=== PATIENT | male | born 1950 | race Caucasian/White ===

== ENCOUNTER 2017-06-05 08:08 | Day surgery (SDC) | payer OTHER, BC ==
[2017-05-31 16:01] VITALS: BMI 28.8
[2017-06-05] MEDS: CYCLOPENTOLATE 2% OPHTH SOLN 2 ML BOTTLE ONE ×3 (09:05→09:15)
[2017-06-05] MEDS: TROPICAMIDE 1% OPHTH SOLN 15 ML BOTTLE ONE ×3 (09:05→09:15)
[2017-06-05] MEDS: CIPROFLOXACIN 0.3% EYE DROPS 5 ML BOTTLE ONE ×3 (09:05→09:15)
[2017-06-05] MEDS: PHENYLEPHRINE 2.5% OPHTH SOLN 15 ML BOTTLE ONE ×3 (09:05→09:15)
[2017-06-05] MEDS ORDERED: BSS (NA/CA/MG/K) BALANCED SALT SOLUTION OPHTH SOLN 15 ML BOTTLE ONE (10:42)
[2017-06-05] MEDS ORDERED: TETRACAINE 0.5% OPHTH SOLN 2 ML BOTTLE ONE (10:42)
[2017-06-05] MEDS ORDERED: CARBACHOL 0.01% INTRA-OCULAR 1.5 ML VIAL ONE (10:43)
[2017-06-05] MEDS ORDERED: MIDAZOLAM HCL 2 MG/2 ML SINGLE DOSE VIAL ONE ×2 (10:53→10:55)
--- NOTE | 2017-06-05 12:44 | OP ---
DATE OF OPERATION: 06/05/2017 OPERATIVE PROCEDURE: Lens Phacoemulsification with Posterior Chamber Intraocular Lens Placement Left Eye PREOPERATIVE DIAGNOSIS: Visually Significant Cataract of Left Eye POSTOPERATIVE DIAGNOSIS: Visually Significant Cataract of Left Eye SURGEON: Jaiden Adorno M.D. ANESTHESIA: MAC PROCEDURE: The patient was brought to the operating room and placed under monitored anesthesia care by Anesthesia. A drop of Tetracaine was then placed over the left eye. The patient was then prepped and draped in the usual sterile manner. A speculum was then placed over the left eye. The eye was then well irrigated with copious amounts of BSS (balanced salt solution). The operating microscope was then moved into position. A paracentesis was performed using a 15 degree blade. At this point 0.5 mL of 1% preservative-free lidocaine was injected into the anterior chamber. Amvisc plus was then injected into the anterior chamber. A clear corneal incision was then formed using a 2.2 mm keratome. A capsulorrhexis was then performed in a continuous circular fashion beginning with a cystotome, completed with an Utratas forceps. Hydrodissection was then performed using BSS on a cannula. The phaco probe was then introduced through the corneal wound and the cataract was removed using the phaco chop technique. Approximately 3 seconds of absolute phaco time was used. The remaining cortex was then removed using irrigation and aspiration with an I/A probe. The capsule was then filled with regular Amvisc and the capsule was noted to be intact. A previously selected foldable posterior chamber intraocular lens was then injected into the capsule through the corneal wound using a lens injector. It was then dialed into position using a Sinskey hook. The Amvisc was then removed using irrigation and aspiration. Miostat was then injected through the paracentesis to constrict the pupil. The paracentesis and corneal wound were then hydrated and noted to be water tight. A drop of Maxitrol was then placed over the eye. The speculum was removed and clear shield was taped over the eye. The patient tolerated the procedure well and there were no surgical complications. The patient was asked to follow up in my office the next day. JAIDEN ADORNO M.D. ANI/[id number]
[2017-06-05 13:58] VITALS: TEMP 97.9
[2017-06-05 14:01] VITALS: BP 141/86; PULSE 46
== END 2017-06-05 12:00 | disposition home or self-care (01) ==
LOC: FASU 08:08
PROVIDERS: ATTEND Ophthalmology
PROC: 08RK3JZ Replacement of Left Lens with Synthetic Substitute, Percutaneous Approach (ICD-10-PCS; principal; 2017-06-05 10:59)
DX: H26.8 Other specified cataract (principal)

== ENCOUNTER 2019-04-06 11:01 | Emergency (ER) | payer OTHER, BC ==
[2019-04-06 11:15] VITALS: BMI 28.3
--- NOTE | 2019-04-06 11:22 | PDOC ---
History of Present Illness - General Chief Complaint: Chest Pain Stated Complaint: CHEST PAIN Time Seen by Provider: 04/06/19 11:22 History Source: Patient Exam Limitations: No Limitations - History of Present Illness Initial Comments: 68 year old male with PMH HTN, HLD, CAD (stent X4) BIBA to ED for chest pain since 944 today. Pt reported pain is constant, no alleviating or aggravating factors, no radiation, described as "tightness". Pt admitted to generalized weakness. Pt reported he felt a similar pain Saturday, but it self resolved after a few hours. Pt given 1 nitro, ASA 324 mg en route to ED via EMS. Cardiology: [facility] PCP: Chandana Waller Past History - Past Medical History Allergies/Adverse Reactions: Allergies Allergy/AdvReac Type Severity Reaction Status Date / Time No Known Allergies Allergy Verified 04/06/19 11:15 Home Medications: Ambulatory Orders Amlodipine Besylate 5 mg PO ASDIR PRN 04/06/19 Aspirin 81 mg PO DAILY 04/06/19 Atorvastatin Ca [Lipitor] 80 mg PO HS 04/06/19 Icosapent Ethyl [Vascepa] 1 gm PO DAILY 04/06/19 Ramipril 5 mg PO DAILY 04/06/19 Vitamin D - 1,000 unit PO DAILY 04/06/19 Anemia: No Asthma: No Cancer: No Cardiac Disorders: Yes CVA: No COPD: No CHF: No Dementia: No Diabetes: No GI Disorders: No Disorders: No HTN: Yes Hypercholesterolemia: Yes Liver Disease: No Seizures: No Thyroid Disease: No - Surgical History Abdominal Surgery: No Appendectomy: No Cardiac Surgery: Yes (CARDIAC STENTS TIMES 3 last 2014) Cholecystectomy: Yes Lung Surgery: No Neurologic Surgery: No Orthopedic Surgery: No - Suicide/Smoking/Psychosocial Hx Smoking History: Unknown if ever smoked Have you smoked in the past 12 months: No Information on smoking cessation initiated: No Hx Alcohol Use: No Drug/Substance Use Hx: No Substance Use Type: None Hx Substance Use Treatment: No Review of Systems - Review of Systems Able to Perform ROS?: Yes Comments:: General: admitted to generalized weakness. denied fever, chills. HEENT: denied sore throat, rhinorrhea, ear pain. Cardiovascular: admitted to chest pain. denied palpitations, syncope, diaphoresis. Respiratory: admitted to shortness of breath. denied cough, sputum production, hemoptysis. Gastrointestinal: denied abdominal pain, nausea, vomiting, diarrhea, constipation, blood in stool. Genitourinary: denied dysuria, increased urinary frequency, hematuria, urinary incontinence, flank pain. Back: denied back pain. Musculoskeletal: denied joint pain, muscle pain, joint swelling. Neurological: denied headache, dizziness, numbness, tingling, weakness. Integumentary: denied rash, laceration, abrasion. Hematologic/Lymphatic: denied bruising or bleeding. *Physical Exam - Vital Signs Last Vital Signs Temp Pulse Resp BP Pulse Ox 97.5 F L 47 L 16 159/66 100 04/06/19 11:01 04/06/19 11:01 04/06/19 11:01 04/06/19 11:01 04/06/19 11:01 - Physical Exam Comments: Constitutional: Well-nourished, Well-developed, appearing stated age. HEENT: head is normocephalic, atraumatic. EOMI. PERRLA. no posterior pharyngeal erythema.no tonsillar swelling or exudates bilaterally. uvula midline. no peritonsillar swelling, tenderness or abscess. no jaw tenderness or misalignment. Neck: supple. Full ROM. Cardiovascular: regular heart rhythm. no murmurs. no pericardial friction rub. Chest: no tenderness to palpation of anterior chest wall. Respiratory: clear to auscultation bilaterally. no crackles, rhonchi or wheezing. no stridor. Gastrointestinal: soft, nontender. normal bowel sounds. no rebound, guarding, masses. Extremities: peripheral pulses intact. no lower extremity edema. Neurological: CN 2-12 grossly intact. moves all four extremities. Psych: awake, alert, oriented x3. follows commands. answers questions appropriately. Heart Score/ECG Review - History History: Moderately suspicious - Electrocardiogram EKG: Normal - Age Age: >/= 65 - Risk Factors Risk Factors Heart Score: Yes Hx Hypercholesterolemia, Yes Hx Hypertension, No Hx Diabetes, No Smoking History, No Positive family hx of cardiac disease, No Hx Obesity Based on the list above the patient has:: 1-2 risk factors - Troponin Troponin: </= normal limit - Score Heart Score - Total: 4 ED Treatment Course - LABORATORY CBC & Chemistry Diagram: 04/06/19 11:39 04/06/19 11:39 Medical Decision Making - Medical Decision Making 68 year old male with above PMH presented to ED for chest pain since 944 today. Initial Vital Signs Temp Pulse Resp BP Pulse Ox 97.5 F L 47 L 16 159/66 100 04/06/19 11:01 04/06/19 11:01 04/06/19 11:01 04/06/19 11:01 04/06/19 11:01 Afebrile. Bradycardic. No tachypnea. Pebbles hypertension. No hypoxia on room air. Labs ordered: CBC, CMP, mag, troponin, Imaging ordered: CXR Medications ordered: none EKG performed at 1058: rate 48, regular rhythm, left axis, normal intervals, ST depression to aVL, otherwise no acute ST changes. EKG comparison from 01/24/18: rate 48. 04/06/19 12:22 CBC WBC 9.5 K/mm3 (4.0-10.0) 04/06/19 11:39 RBC 4.52 M/mm3 (4.00-5.60) 04/06/19 11:39 Hgb 13.2 GM/dL (11.7-16.9) 04/06/19 11:39 Hct 39.9 % (35.4-49) 04/06/19 11:39 MCV 88.4 fl (80-96) 04/06/19 11:39 MCH 29.2 pg (25.7-33.7) 04/06/19 11:39 MCHC 33.0 g/dl (32.0-35.9) 04/06/19 11:39 RDW 13.9 % (11.9-15.9) 04/06/19 11:39 Plt Count 267 K/MM3 (134-434) D 04/06/19 11:39 MPV 9.1 fl (7.5-11.1) 04/06/19 11:39 Absolute Neuts (auto) 6.4 K/mm3 (1.5-8.0) 04/06/19 11:39 Neutrophils % 67.7 % (42.8-82.8) 04/06/19 11:39 Lymphocytes % 23.1 % (8-40) D 04/06/19 11:39 Monocytes % 6.9 % (3.8-10.2) 04/06/19 11:39 Eosinophils % 1.1 % (0-4.5) 04/06/19 11:39 Basophils % 1.2 % (0-2.0) D 04/06/19 11:39 Nucleated RBC % 0 % (0-0) 04/06/19 11:39 No leukocytosis. No anemia. CMP Sodium 140 mmol/L (136-145) 04/06/19 11:39 Potassium 4.3 mmol/L (3.5-5.1) 04/06/19 11:39 Chloride 106 mmol/L (98-107) 04/06/19 11:39 Carbon Dioxide 29 mmol/L (21-32) 04/06/19 11:39 Anion Gap 5 MMOL/L (8-16) L 04/06/19 11:39 BUN 22.0 mg/dL (7-18) H 04/06/19 11:39 Creatinine 1.0 mg/dL (0.55-1.3) 04/06/19 11:39 Est GFR (CKD-EPI)AfAm 87.99 04/06/19 11:39 Est GFR (CKD-EPI)NonAf 75.92 04/06/19 11:39 Random Glucose 152 mg/dL (74-106) H 04/06/19 11:39 Calcium 8.7 mg/dL (8.5-10.1) 04/06/19 11:39 Total Bilirubin 0.4 mg/dL (0.2-1) 04/06/19 11:39 AST 17 U/L (15-37) 04/06/19 11:39 ALT 27 U/L (13-61) 04/06/19 11:39 Alkaline Phosphatase 81 U/L (45-117) 04/06/19 11:39 Total Protein 6.4 g/dl (6.4-8.2) 04/06/19 11:39 Albumin 3.5 g/dl (3.4-5.0) 04/06/19 11:39 No electrolyte abnormalities No SILVIO 04/06/19 12:27 CMP Troponin I 0.16 ng/ml (0.00-0.05) H 04/06/19 11:39 B-Natriuretic Peptide 279.8 pg/ml (5-125) H 04/06/19 11:39 Pt has NSTEMI -B-blockade contraindicated secondary to bradycardia -Pt is already on Atorvastatin 80 mg PO daily at home; reported he took his medication this AM -Pt is already on Plavix 75 mg PO daily at home; reported his took his medication this AM Dr. Gonzales paged. 04/06/19 12:51 CXR report: Exam Date: 04/06/19 Status: SAVANA [id number] Unit Number: [id number] EXAM#: TYPE/EXAM: RESULT: [id number] RAD/CHEST X-RAY PORTABLE* Chest pain. Single portable chest x-ray compared with January 22, 2015. The heart is borderline enlarged. The lungs are well aerated without evidence of a pulmonary infiltrates, atelectasis. No pleural effusion, or pneumothorax is seen. Elevated diaphragm. The visualized osseous structures appear intact. EKG lead is noted. Impression. No evidence of active pulmonary disease. Reported By: Gabriel Castillo MD 04/06/19 1249 04/06/19 13:[address] Ulloa, cardiology safety and occupational health manager for Dr. Gonzales, she requested Heparin drip, plavix 300 mg PO once, nitro for chest pain. Pt to be admitted for NSTEMI. Dr. Sun paged. 04/06/19 14:45 EKG performed at 1430: rate 53, regular rhythm, left axis, normal intervals, ST depression to aVL, otherwise no acute ST changes. 04/06/19 14:[address] Sun paged on cell phone. 04/06/19 15:[address] Sun about the patient. She agrees with plan for care. Pending admission. 04/06/19 15:38 Dr. Ulloa recommends transfer to [place] for cath. Pt and family agree with plan for care. Dr. Ulloa gave verbal report to Dr. Razo, accepting physician. Pending transfer. Dr. Sun updated. *DC/Admit/Observation/Transfer Diagnosis at time of Disposition: NSTEMI (non-ST elevated myocardial infarction), Chest pain - Discharge Dispostion Disposition: TRANSFER ACUTE CARE/OTHER HOSP Condition at time of disposition: Stable Decision to Admit order: Yes - Referrals - Patient Instructions - Post Discharge Activity
[2019-04-06] MEDS ORDERED: ASPIRIN 81 MG CHEWABLE TABLETS PO ONE (11:23)
[2019-04-06 12:06] LABS: BASO % 1.2 % (0-2.0); EOS % 1.1 % (0-4.5); HEMATOCRIT 39.9 % (35.4-49); HEMOGLOBIN 13.2 GM/dL (11.7-16.9); LYMPH % 23.1 % (8-40); MCH 29.2 pg (25.7-33.7); MEAN CELL VOLUME 88.4 fl (80-96); MEAN PLT VOLUME 9.1 fl (7.5-11.1); MONO % 6.9 % (3.8-10.2); NEUT % 67.7 % (42.8-82.8); PLATELET COUNT 267 K/MM3 (134-434); RBC 4.52 M/mm3 (4.00-5.60); RDW 13.9 % (11.9-15.9); WHITE BLOOD COUNT 9.5 K/mm3 (4.0-10.0)
[2019-04-06 12:21] LABS: ALBUMIN 3.5 g/dl (3.4-5.0); BILIRUBIN,TOTAL 0.4 mg/dL (0.2-1); CALCIUM 8.7 mg/dL (8.5-10.1); POTASSIUM 4.3 mmol/L (3.5-5.1); TOT PROT 6.4 g/dl (6.4-8.2)
[2019-04-06 12:22] LABS: MAGNESIUM 1.8 mg/dL (1.8-2.4); N-TERMINAL BNP 279.8 pg/ml (5-125)
[2019-04-06] MEDS ORDERED: HEPARIN NA (PORCINE) 5,000 UNITS/ML 1ML VIAL IVPUSH PRN ×2 (13:35)
[2019-04-06] MEDS ORDERED: CLOPIDOGREL BISULFATE 300 MG TABLET PO ONE (13:37)
[2019-04-06] MEDS ORDERED: HEPARIN - 25,000 UNIT in SODIUM CHLORIDE 495 ML IV SCH (13:45)
[2019-04-06] MEDS ORDERED: HEPARIN INFUSION - 25,000 UNITS/500 ML INFUS.BAG IVPB ONE (14:06)
[2019-04-06] MEDS ORDERED: CLOPIDOGREL BISULFATE 300 MG TABLET ONE (14:25)
[2019-04-06 14:44] LABS: PROTHROMBIN TIME (PATIENT) 11.8 SEC (9.7-13.0)
--- NOTE | 2019-04-06 15:49 | PDOC ---
Documentation entered by Rishi Fuller SCRIBE, acting as scribe for Donal Benedict MD. Donal Benedict MD: This documentation has been prepared by the Alina shanks Elijah, SCRIBE, under my direction and personally reviewed by me in its entirety. I confirm that the documentation accurately reflects all work, treatment, procedures, and medical decision making performed by me. Attending Attestation - Resident Resident Name: Lissy Eugene - ED Attending Attestation I have performed the following: I have examined & evaluated the patient, The case was reviewed & discussed with the resident, I agree w/resident's findings & plan, Exceptions are as noted - HPI HPI: 04/06/19 14:55 Patient is a 68 year old male with a significant past medical history of HTN, HLD, and CAD (x4 stents) who presents to the ED via EMS with chest pain lasting for 3 days. Patient describes the pain as tightness and associated weakness. Pain began while pt was gardening but has persisted at rest. On route to the ED , pt was given ASA and nitro with some relief of pain Allergies: YASHIRA PCP: Dr. Waller Heel Burnisher: Dr. Gonzales - Physicial Exam PE: 04/06/19 14:58 GENERAL: Awake, alert, and fully oriented, in no acute distress. HEAD: No signs of trauma EYES: PERRLA, EOMI, sclera anicteric, conjunctiva clear ENT: Auricles normal inspection, hearing grossly normal, nares patent, oropharynx clear without exudates. Moist mucosa NECK: Nontender, no stepoffs, Normal ROM, supple, no lymphadenopathy, JVD, or masses LUNGS: Breath sounds equal, clear to auscultation bilaterally. No wheezes, and no crackles HEART: Regular rate and rhythm, normal S1 and S2, no murmurs, rubs or gallops ABDOMEN: Soft, nontender, normoactive bowel sounds. No guarding, no rebound. No masses EXTREMITIES: Normal range of motion, no edema. No clubbing or cyanosis. No cords, erythema, or tenderness NEUROLOGICAL: Cranial nerves II through XII intact. 5/5 strength and sensation in all extremities, Normal speech, normal cerebellar function SKIN: Warm, Dry, normal turgor, no rashes or lesions noted. - Medical Decision Making 04/06/19 15:47 68yo M hx MMP including CAD s/p 3 stents presents to the ED with very good story for unstable angina EKG non ischemic, stable x2 Initial trop 0.16, rpt stable Pt got full dose of asa, placed on heparin gtt On evaluation by Dr. Ulloa, decision made to transfer pt to [facility] for cath given good story, concerning hx and positive trop Pt has been accepted by Dr. Razo (was discussed with him by Dr Ulloa) We called [facility] transfer center to confirm acceptance of transfer, they were aware and will set up transport Pt is hemodynaminally stable, now awaiting transfer
--- NOTE | 2019-04-06 16:07 | CON.CARD ---
Consult Consult Specialty:: Cardiology Referred by:: ER Reason for Consultation:: chest pain - History of Present Illness Chief Complaint: chest pain History of Present Illness: 68M h/o HTN, HLD, CAD s/p stents x 4 p/w chest pain. Started this morning around 10 AM after he was cleaning, taking out trash. Lasted for a couple of hours, was relieved by nitro in the ER. Blanch like tightness, substernal, felt weak and short of breath at the time. Had a similar pain this weekend on Saturday while doing work in the garage that lasted a few hours and resolved on its own. Currently chest pain free, no dyspnea, dizziness, lightheadedness. Sees Dr. Gonzales for cardio. - Past Medical History Cardio/Vascular: Yes: CAD, HTN, Hyperlipdemia - Past Surgical History Past Surgical History: Yes: Cholecystectomy - Alcohol/Substance Use Hx Alcohol Use: No History of Substance Use: reports: None - Smoking History Smoking history: Unknown if ever smoked Have you smoked in the past 12 months: No - Social History ADL: Independent History of Recent Travel: No Home Medications - Allergies Allergies/Adverse Reactions: Allergies Allergy/AdvReac Type Severity Reaction Status Date / Time No Known Allergies Allergy Verified 04/06/19 11:15 - Home Medications Home Medications: Ambulatory Orders Amlodipine Besylate 5 mg PO ASDIR PRN 04/06/19 Aspirin 81 mg PO DAILY 04/06/19 Atorvastatin Ca [Lipitor] 80 mg PO HS 04/06/19 Icosapent Ethyl [Vascepa] 1 gm PO DAILY 04/06/19 Ramipril 5 mg PO DAILY 04/06/19 Vitamin D - 1,000 unit PO DAILY 04/06/19 Family Disease History - Family Disease History Family Disease History: Diabetes: Mother, Heart Disease: Father Review of Systems - Review of Systems Constitutional: reports: No Symptoms Eyes: reports: No Symptoms HENT: reports: No Symptoms Neck: reports: No Symptoms Cardiovascular: reports: No Symptoms Respiratory: reports: No Symptoms Gastrointestinal: reports: No Symptoms Genitourinary: reports: No Symptoms Musculoskeletal: reports: No Symptoms Integumentary: reports: No Symptoms Neurological: reports: No Symptoms Endocrine: reports: No Symptoms Hematology/Lymphatic: reports: No Symptoms Psychiatric: reports: No Symptoms Vital Signs: Vital Signs Temperature 97.5 F L 04/06/19 11:01 Pulse Rate 52 L 04/06/19 14:00 Respiratory Rate 16 04/06/19 13:15 Blood Pressure 137/75 04/06/19 13:15 O2 Sat by Pulse Oximetry (%) 100 04/06/19 14:00 Constitutional: Yes: Well Nourished, No Distress Eyes: Yes: Conjunctiva Clear, EOM Intact HENT: Yes: Atraumatic, Normocephalic Neck: Yes: Supple, Trachea Midline Respiratory: Yes: Regular, CTA Bilaterally Gastrointestinal: Yes: Normal Bowel Sounds, Soft Cardiovascular: Yes: Regular Rate and Rhythm JVD: No Carotid Bruit: No PMI: Non-Displaced Heart Sounds: Yes: S1, S2 Murmur: No: Systolic Murmur Edema: No Integumentary: No: Jaundice Neurological: Yes: Alert, Oriented Psychiatric: No: Agitated - Other Data Labs, Other Data: CBC, BMP 04/06/19 11:39 04/06/19 11:39 INR, PTT INR 1.00 (0.83-1.09) 04/06/19 13:46 Troponin, BNP 04/06/19 04/06/19 04/06/19 11:39 11:39 13:46 Troponin I 0.16 H 0.16 H B-Natriuretic Peptide 279.8 H Troponin, BNP 04/06/19 04/06/19 04/06/19 11:39 11:39 13:46 Troponin I 0.16 H 0.16 H B-Natriuretic Peptide 279.8 H Assessment/Plan [facility] 02/07: L-dominant; patent pLAD and mLAD stents; 30-50% oD1 (jailed); 30-50% pLCX; 80-90% large LPDA--xience; mild/diffuse LPL1, mild/diffuse RCA; nl EDP and EF [facility] 05 ([facility]): s/p DESx3 to LAD, staged SALLY to LCX; residual mild LMCA, dLAD, and mRCA (60%) MPI 12/10 ([facility]): No ischemic ST-T changes. Diaphragmatic attenuation artifact present, which explains the fixed inferolateral defect. Partially reversible apicolateral defect may represent ischemia in this distribution, though cannot exclude artifact as the defect does not completely resolve on rest images. Normal LVEF. Moderately dilated LV cavity at rest, without signs of transient ischemic dilation. [facility] 01/05: ([facility]) no STs; no isch; + diaphragm; nl EF/wall motion; no LVE or TID [facility] '09: 10:56 min, +ST, no isch, nl EF Echo 05/13: 1. Sinus rhythm with frequent PVCs. 2. The left ventricular size is normal. 3. There is mild concentric left ventricular hypertrophy. 4. Overall left ventricular systolic function is normal with, an EF between 60 - 65 %. 5. LA pressure is uncertain. 6. No regional wall motion abnormalities were noted. 7. The right ventricle is normal in size and function. 8. Left atrium is mildly dilated by volume. 9. The right atrium is mildly enlarged. 10. There is mild aortic regurgitation. Echo 03/2016: nl LV/EF; no RWMA; nl RV; mild LAE; mild AI; mild pHTN (43) Echo 12/06: nl LV/EF; ? mild IW/PW hypo; nl RV; mild LAE; tr AI. EKG: sinus tonya, LVH with repol, no ischemic changes CXR: no acute process chest pain, NSTEMI, h/o CAD - heparin gtt, received plavix 300 mg x 1 - cont aspirin, atorvastatin - accepted for transfer for cath to [facility] by Dr. Jennings HTN - cont home meds HLD - cont statin sinus tonya - stable - not on bb
[2019-04-06 18:33] VITALS: TEMP 98.1
[2019-04-06 19:40] VITALS: BP 150/72; PULSE 51
--- NOTE | 2019-04-07 11:26 | EKG ---
Test Reason : Blood Pressure : / mmHG Vent. Rate : 053 BPM Atrial Rate : 053 BPM P-R Int : 198 ms QRS Dur : 084 ms QT Int : 426 ms P-R-T Axes : -28 -25 050 degrees QTc Int : 399 ms POOR DATA QUALITY, INTERPRETATION MAY BE ADVERSELY AFFECTED SINUS BRADYCARDIA LEFT VENTRICULAR HYPERTROPHY WITH REPOLARIZATION ABNORMALITY ABNORMAL ECG WHEN COMPARED WITH ECG OF 06-APR-2019 10:58, NO SIGNIFICANT CHANGE WAS FOUND Confirmed by Gurinder June MD ([id number]) on 04/07/2019 11:26:12 AM Referred By: Confirmed By:Gurinder June MD
--- NOTE | 2019-04-07 11:27 | EKG ---
Test Reason : Blood Pressure : / mmHG Vent. Rate : 048 BPM Atrial Rate : 048 BPM P-R Int : 198 ms QRS Dur : 092 ms QT Int : 428 ms P-R-T Axes : 042 -12 055 degrees QTc Int : 382 ms SINUS BRADYCARDIA LEFT VENTRICULAR HYPERTROPHY WITH REPOLARIZATION ABNORMALITY INFERIOR INFARCT , AGE UNDETERMINED ABNORMAL ECG WHEN COMPARED WITH ECG OF 24-JAN-2015 09:31, NO SIGNIFICANT CHANGE WAS FOUND Confirmed by Gurinder June MD ([id number]) on 04/07/2019 11:27:17 AM Referred By: Confirmed By:Gurinder June MD
== END 2019-04-06 19:30 | disposition short-term general hospital (02) ==
LOC: JER 11:01 → JERBED 12:30 → UNDOADMIN 12:30 → JER 19:30
DX: I21.4 Non-ST elevation (NSTEMI) myocardial infarction (principal); E78.00 Pure hypercholesterolemia, unspecified; I10 Essential (primary) hypertension
CPT/HCPCS: 36415; 71045-TC-FY; 80053; 82550; 83735; 83880; 84484; 85025; 85610; 85730; 93005; 93010; 99285-25; J1644

== ENCOUNTER 2019-04-17 16:02 | Emergency (ER) | payer OTHER, BC ==
--- NOTE | 2019-04-17 16:05 | PDOC ---
Rapid Medical Evaluation Medical Evaluation: Allergies Allergy/AdvReac Type Severity Reaction Status Date / Time No Known Allergies Allergy Verified 04/06/19 11:15 04/17/19 16:06 Pt c/o: chest pain x 1 day, sent by txtr secondary to elevated troponin noted in lab today, here fro tx to [facility] pt on brief exam: vss, trop 0.27, hx of stent placement 1 week ago pt ordered for: cardiac w/u pt to proceed to ED Discharge Disposition - Diagnosis Chest pain, Unstable angina - Discharge Dispostion Disposition: TRANSFER ACUTE CARE/OTHER HOSP Condition at time of disposition: Stable - Referrals - Patient Instructions - Post Discharge Activity
[2019-04-17] MEDS ORDERED: HEPARIN NA (PORCINE) 5,000 UNITS/ML 1ML VIAL IVPUSH PRN ×2 (16:18)
[2019-04-17] MEDS ORDERED: HEPARIN INFUSION - 25,000 UNITS/500 ML INFUS.BAG IVPB ONE (16:29)
[2019-04-17] MEDS ORDERED: HEPARIN NA (PORCINE) 5,000 UNITS/ML 1ML VIAL ONE (16:29)
[2019-04-17] MEDS ORDERED: HEPARIN INFUSION - 25,000 UNITS/500 ML INFUS.BAG IVPB SCH (16:30)
[2019-04-17 16:41] LABS: BASO % 1.2 % (0-2.0); EOS % 2.1 % (0-4.5); HEMATOCRIT 37.6 % (35.4-49); HEMOGLOBIN 12.6 GM/dL (11.7-16.9); LYMPH % 25.9 % (8-40); MCH 29.4 pg (25.7-33.7); MCHC 33.5 g/dl (32.0-35.9); MEAN CELL VOLUME 87.8 fl (80-96); MEAN PLT VOLUME 8.6 fl (7.5-11.1); MONO % 7.9 % (3.8-10.2); NEUT % 62.9 % (42.8-82.8); PLATELET COUNT 264 K/MM3 (134-434); RBC 4.29 M/mm3 (4.00-5.60); RDW 14.2 % (11.9-15.9); WHITE BLOOD COUNT 8.8 K/mm3 (4.0-10.0)
[2019-04-17 16:56] LABS: INR 1.1 (0.83-1.09)
--- NOTE | 2019-04-17 16:56 | PDOC ---
History of Present Illness - General Chief Complaint: Chest Pain Stated Complaint: CHEST PAINS Time Seen by Provider: 04/17/19 16:10 - History of Present Illness Initial Comments: 04/17/19 16:51 68m with pmh of unstable angina, multiple stent including 1 week ago at [facility] for NSTEMI, complaining of chest pain for 1 day. [place] 7/10 sharp pain around 2pm today, relieved by sublingual nitro, now 2/10 Seen in the office by Dr. Ulloa, found to have troponin of 0.27, sent the patient to be transferred to [place] under the care of photographer portrait Dr. Hernandez. Patient now with mild sternal pain, non radiating, comfortable. Past History - Past Medical History Allergies/Adverse Reactions: Allergies Allergy/AdvReac Type Severity Reaction Status Date / Time No Known Allergies Allergy Verified 04/17/19 16:08 Home Medications: Ambulatory Orders Amlodipine Besylate 5 mg PO DAILY 04/06/19 Aspirin 81 mg PO DAILY 04/06/19 Atorvastatin Ca [Lipitor] 80 mg PO HS 04/06/19 Icosapent Ethyl [Vascepa] 1 gm PO DAILY 04/06/19 Ramipril 5 mg PO ASDIR 04/06/19 Vitamin D - 1,000 unit PO DAILY 04/06/19 Clopidogrel Bisulfate [Plavix -] 75 mg PO DAILY 04/17/19 Nitroglycerin Sublingual [Nitrostat -] 0.4 mg SL ASDIR 04/17/19 Anemia: No Asthma: No Cancer: No Cardiac Disorders: Yes CVA: No COPD: No CHF: No Dementia: No Diabetes: No GI Disorders: No Disorders: No HTN: Yes Hypercholesterolemia: Yes Liver Disease: No Seizures: No Thyroid Disease: No - Surgical History Abdominal Surgery: No Appendectomy: No Cardiac Surgery: Yes (CARDIAC STENTS TIMES 4 last 03/2019) Cholecystectomy: Yes Lung Surgery: No Neurologic Surgery: No Orthopedic Surgery: No - Suicide/Smoking/Psychosocial Hx Smoking History: Never smoked Have you smoked in the past 12 months: No Hx Alcohol Use: No Drug/Substance Use Hx: No Substance Use Type: None Hx Substance Use Treatment: No Cardiac Specific PMH - Complaint Specific PMHX Pacemaker: No Review of Systems - Review of Systems Able to Perform ROS?: Yes Is the patient limited Mosotho proficient: No Constitutional: No: Symptoms Reported HEENTM: No: Symptoms Reported Respiratory: No: Symptoms reported Cardiac (ROS): Yes: See HPI ABD/GI: No: Symptoms Reported : No: Symptoms Reported Musculoskeletal: No: Symptoms Reported Integumentary: No: Symptoms Reported Neurological: No: Symptoms reported All Other Systems: Reviewed and Negative *Physical Exam - Vital Signs Last Vital Signs Temp Pulse Resp BP Pulse Ox 98.0 F 56 L 14 146/63 98 04/17/19 16:05 04/17/19 16:05 04/17/19 16:05 04/17/19 16:05 04/17/19 16:05 - Physical Exam General Appearance: Yes: Nourished, Appropriately Dressed. No: Apparent Distress HEENT: positive: EOMI, MAXINE, Normal ENT Inspection Respiratory/Chest: positive: Lungs Clear, Normal Breath Sounds. negative: Chest Tender, Respiratory Distress Cardiovascular: positive: Regular Rhythm, Regular Rate, S1, S2 Gastrointestinal/Abdominal: positive: Normal Bowel Sounds, Flat, Soft. negative : Tender Musculoskeletal: positive: Normal Inspection. negative: CVA Tenderness Extremity: positive: Normal Capillary Refill, Normal Inspection, Normal Range of Motion Integumentary: positive: Normal Color, Dry, Warm Neurologic: positive: Fully Oriented, Alert, Normal Mood/Affect, Normal Response , Motor Strength 5/5 ED Treatment Course - LABORATORY CBC & Chemistry Diagram: 04/17/19 16:30 04/17/19 16:30 - ADDITIONAL ORDERS Additional order review: Laboratory Results 04/17/19 16:30 PT with INR 13.00 INR 1.10 H 04/17/19 16:30 RBC 4.29 MCV 87.8 MCHC 33.5 RDW 14.2 MPV 8.6 Neutrophils % 62.9 Lymphocytes % 25.9 Monocytes % 7.9 Eosinophils % 2.1 D Basophils % 1.2 Medical Decision Making - Medical Decision Making 04/17/19 16:56 68m with h/o NSTEMI a week ago sent here to be transferred to [facility]. EKG sinus bradycardia left LVH, inferior infarct age undetermined. 04/17/19 16:59 Cardiac work up ordered with trops pending, heparin drip started, and transfer to [place] initiated. Spoke to Dr. Hernandez who will see the patient in the lab coordinator 04/17/19 17:07 *DC/Admit/Observation/Transfer Diagnosis at time of Disposition: Chest pain, Unstable angina - Discharge Dispostion Disposition: TRANSFER ACUTE CARE/OTHER HOSP - Referrals - Patient Instructions - Post Discharge Activity - Transfer to Acute Care Facility Receiving Facility: [facility] Accepting Physician:: Dr. Hernandez
[2019-04-17 17:17] LABS: ALBUMIN 3.8 g/dl (3.4-5.0); BILIRUBIN,TOTAL 0.5 mg/dL (0.2-1); BLOOD UREA NITROGEN 14.6 mg/dL (7-18); CREATININE 1.2 mg/dL (0.55-1.3); MAGNESIUM 2.1 mg/dL (1.8-2.4); POTASSIUM 4.6 mmol/L (3.5-5.1)
[2019-04-17 17:47] VITALS: BP 149/64; PULSE 51; TEMP 98
--- NOTE | 2019-04-18 02:06 | PDOC ---
Documentation entered by Jennifer Brown SCRIBE, acting as scribe for Gardenia Sanz MD. Gardenia Sanz MD: This documentation has been prepared by the Stephanie shanks Adrianna, SCRIBE, under my direction and personally reviewed by me in its entirety. I confirm that the documentation accurately reflects all work, treatment, procedures, and medical decision making performed by me. Attending Attestation - Resident Resident Name: Edmond Steward - [facility] HPI: The patient is a 68 year old male, with a significant PMH of HTN, HLD, and CAD ( x4 stents), who presents to the ED [facility] for evaluation of chest pain for one day. Patient reports feeling sharp chest pain earlier this afternoon, which prompted him to see Dr. Ulloa in office. He was found to have a troponin of 0.27, and was advised to come to the ED for evaluation and transfer to Dr. Hernandez at [place]. He notes his chest pain is now a 2/10, which has progressively gotten better since earlier this afternoon. Patient reports taking his daily dose of aspirin, plavix, and sublingual nitro. Allergies: NKA Surgical History: Stents x4, cholecystectomy Social History: Denies EtOH, tobacco, or illicit drug use PCP: Dr. Waller Electrical System Specialist: Dr. Gonzales - Physicial Exam PE: GENERAL: Awake, alert, and fully oriented, in no acute distress HEAD: No signs of trauma LUNGS: Breath sounds equal, clear to auscultation bilaterally. No wheezes, and no crackles HEART: Regular rate and rhythm, normal S1 and S2, no murmurs, rubs or gallops ABDOMEN: Soft, nontender, normoactive bowel sounds. No guarding, no rebound. No masses EXTREMITIES: Normal range of motion, no edema. No clubbing or cyanosis. No cords, erythema, or tenderness NEUROLOGICAL: Cranial nerves II through XII grossly intact. Normal speech SKIN: Warm, Dry, normal turgor, no rashes or lesions noted. - Medical Decision Making 04/24/19 07:51 Pt presents to the ED complaining of chest pain relieved by nitroglycerin. Recent history of multiple stent placement at [facility]. EKG shows no acute ischemia, chest pain is greatly improved. Will transfer to [facility] given recent cath.
--- NOTE | 2019-04-18 16:02 | EKG ---
Test Reason : Blood Pressure : / mmHG Vent. Rate : 048 BPM Atrial Rate : 048 BPM P-R Int : 192 ms QRS Dur : 104 ms QT Int : 442 ms P-R-T Axes : 030 -24 024 degrees QTc Int : 394 ms SINUS BRADYCARDIA WITH SINUS ARRHYTHMIA VOLTAGE CRITERIA FOR LEFT VENTRICULAR HYPERTROPHY NONSPECIFIC ST ABNORMALITY ABNORMAL ECG WHEN COMPARED WITH ECG OF 06-APR-2019 14:30, NO SIGNIFICANT CHANGE WAS FOUND Confirmed by ELISEO WORRELL, JEAN ([id number]) on 04/18/2019 4:02:08 PM Referred By: Confirmed By:JEAN GOMES MD
== END 2019-04-17 17:56 | disposition short-term general hospital (02) ==
LOC: JER 16:02
PROC: 3E033GC Introduction of Other Therapeutic Substance into Peripheral Vein, Percutaneous Approach (ICD-10-PCS; principal; 2019-04-17)
DX: I20.0 Unstable angina (principal); I10 Essential (primary) hypertension; E78.00 Pure hypercholesterolemia, unspecified; Z95.5 Presence of coronary angioplasty implant and graft
CPT/HCPCS: 36415; 71045-TC-FY; 80053; 82550; 83735; 84484; 85025; 85610; 93005; 93010; 96365; 96375; 99285-25; J1644

== ENCOUNTER 2020-12-07 06:45 | Day surgery (SDC) | payer OTHER, BC ==
[2020-12-07] MEDS: TROPICAMIDE 1% OPHTH SOLN 15 ML BOTTLE ONE ×3 (07:45→07:55)
[2020-12-07] MEDS: CYCLOPENTOLATE 2% OPHTH SOLN 2 ML BOTTLE ONE ×3 (07:45→07:55)
[2020-12-07] MEDS: PHENYLEPHRINE 2.5% OPHTH SOLN 15 ML BOTTLE ONE ×3 (07:45→07:55)
[2020-12-07] MEDS: CIPROFLOXACIN 0.3% EYE DROPS 5 ML BOTTLE ONE ×3 (07:45→07:55)
[2020-12-07] MEDS ORDERED: BSS (NA/CA/MG/K) BALANCED SALT SOLUTION OPHTH SOLN 15 ML BOTTLE ONE (09:38)
[2020-12-07] MEDS ORDERED: LIDOCAINE 1% P/F 10 MG/ML VIAL ONE (09:38)
[2020-12-07] MEDS ORDERED: TETRACAINE 0.5% OPHTH SOLN 2 ML BOTTLE ONE (09:38)
[2020-12-07] MEDS ORDERED: CARBACHOL 0.01% INTRA-OCULAR 1.5 ML VIAL ONE (09:39)
[2020-12-07] MEDS ORDERED: NEO/POLYMYX B SULF/DEXAMETH OPHTHALMIC 5ML BOTTLE ONE (09:39)
[2020-12-07] MEDS ORDERED: MIDAZOLAM HCL 2 MG/2 ML SINGLE DOSE VIAL ONE (09:41)
[2020-12-07] MEDS ORDERED: ONDANSETRON 4 MG/2 ML VIAL ONE ×2 (10:01→10:45)
[2020-12-07 11:00] VITALS: TEMP 97.8
[2020-12-07 11:05] VITALS: BP 133/58; PULSE 60
== END 2020-12-07 11:10 | disposition home or self-care (01) ==
LOC: FASU 06:45
PROVIDERS: ATTEND Ophthalmology
PROC: 08RJ3JZ Replacement of Right Lens with Synthetic Substitute, Percutaneous Approach (ICD-10-PCS; principal; 2020-12-07 09:00)
DX: H26.8 Other specified cataract (principal)

== ENCOUNTER 2025-01-04 07:24 | Day surgery (SDC) | payer OTHER, BC ==
[2024-12-31 10:45] VITALS: BMI 28.1
[2025-01-04] MEDS ORDERED: MIDAZOLAM HCL 2 MG/2 ML SINGLE DOSE VIAL ONE ×2 (07:42→10:22)
[2025-01-04] MEDS ORDERED: VANCOMYCIN 1,000 MG VIAL (RESTRICTED TO ID ONLY) ONE (07:59)
[2025-01-04] MEDS ORDERED: BUPIVACAINE LIPOSOME/PF (EXPAREL) 266 MG/20 ML VIAL ONE (08:23)
[2025-01-04] MEDS ORDERED: BUPIVACAINE HCL/PF 0.5% (5 MG/ML) 30 ML VIAL IJ ONE (08:23)
[2025-01-04] MEDS ORDERED: ePHEDrine SULFATE 50 MG/1 ML AMPULE ONE (10:35)
[2025-01-04] MEDS ORDERED: BUPIVICAINE 0.25%/MORPH PF/KETOROLAC - 51ML DISP.SYRINGE IA ONE (11:20)
[2025-01-04] MEDS ORDERED: ceFAZolin SODIUM 1 GM VIAL ONE (11:25)
[2025-01-04] MEDS ORDERED: DEXAMETHASONE SOD PHOSPHATE 4 MG/1 ML VIAL ONE (11:25)
[2025-01-04] MEDS ORDERED: TRANEXAMIC ACID 1000 MG/10 ML VIAL ONE (11:25)
[2025-01-04] MEDS ORDERED: PHENYLEPHRINE HCL 10 MG/1 ML SINGLE DOSE VIAL ONE (11:25)
[2025-01-04] MEDS ORDERED: ONDANSETRON 4 MG/2 ML VIAL ONE (11:25)
[2025-01-04] MEDS: VANCOMYCIN 1,000 MG VIAL (RESTRICTED TO ID ONLY) IVPB ONE (11:29)
[2025-01-04] MEDS: BUPIVICAINE 0.25%/MORPH PF/KETOROLAC - 51ML DISP.SYRINGE IA ONE (11:41)
[2025-01-04] MEDS ORDERED: MAG HYDROX/AL HYDROX/SIMETH 30 ML UNIT-DOSE CUP PO PRN (11:58)
[2025-01-04] MEDS ORDERED: ONDANSETRON 4 MG/2 ML VIAL IVPUSH PRN ×2 (11:58→12:12)
[2025-01-04] MEDS ORDERED: KETOROLAC TROMETHAMINE 30 MG/1 ML VIAL ONE (12:02)
[2025-01-04] MEDS ORDERED: ACETAMINOPHEN INJECTION 100 ML ONE (12:03)
[2025-01-04] MEDS ORDERED: oxyCODONE HCL 5 MG TABLET PO PRN (12:12)
[2025-01-04] MEDS ORDERED: LACTATED RINGERS SOLUTION 1,000 ML IV SCH (12:15)
[2025-01-04] MEDS: KETOROLAC TROMETHAMINE 30 MG/1 ML VIAL IVPUSH SCH (12:26)
[2025-01-04] MEDS: ACETAMINOPHEN 1000 MG/100 ML BAG IVPB ONE (12:26)
[2025-01-04] MEDS: LACTATED RINGERS SOLUTION 1,000 ML IV SCH (13:34)
[2025-01-04] MEDS: oxyCODONE HCL 5 MG TABLET PO PRN (16:03)
[2025-01-04] MEDS: ACETAMINOPHEN 500 MG TABLET (FP) PO SCH (18:45)
[2025-01-04] MEDS: CEFAZOLIN 2 GM/D5W 2 GRAM/50 ML ML IVPB SCH (18:45)
[2025-01-04] MEDS: GABAPENTIN 300 MG CAPSULE PO SCH (21:31)
[2025-01-04] MEDS: SENNOSIDES/DOCUSATE COMBO (SENNA PLUS) TABLET (UD) PO SCH (21:31)
[2025-01-04] MEDS: oxyCODONE HCL 10 MG SUSTAINED ACTING TABLET PO SCH (21:32)
[2025-01-04 22:33] VITALS: RESP 18
[2025-01-05 07:59] LABS: HEMATOCRIT 36.5 % (40.1-51.0); HEMOGLOBIN 12.1 g/dL (13.7-17.5); MCHC 33.2 g/dl (32.3-36.5); MEAN CELL VOLUME 92.2 fl (79.0-92.2); MEAN PLT VOLUME 10.1 fl (9.4-12.4); PLATELET COUNT 226 x10^3/uL (163-337); RDW 13.3 % (12.2-16.6)
[2025-01-05 09:23] LABS: CALCIUM 8.9 mg/dl (8.5-10.1); CREATININE 1.1 mg/dl (0.6-1.3); POTASSIUM 4.3 mmol/L (3.5-5.1)
[2025-01-05] MEDS: PANTOPRAZOLE 40 MG TABLET PO SCH (10:35)
[2025-01-05] MEDS: ASPIRIN COATED 81 MG TABLET.EC PO SCH (10:35)
[2025-01-05] MEDS: EMPAGLIFLOZIN (JARDIANCE) 10 MG TABLET PO SCH (10:35)
[2025-01-05] MEDS: MULTIVITAMINS (DAILY MVI) TABLET (FP) PO SCH (10:35)
[2025-01-05] MEDS: GABAPENTIN 100 MG CAPSULE PO SCH (10:35)
[2025-01-05] MEDS: RAMIPRIL 2.5 MG CAPSULE PO SCH (10:35)
[2025-01-05 14:52] VITALS: BP 125/52; PULSE 63; TEMP 97.7
[2025-01-05] MEDS ORDERED: ROSUVASTATIN CA 20 MG TABLET PO SCH (22:00)
== END 2025-01-05 14:45 | disposition home or self-care (01) ==
LOC: FASUSAT 07:24 → SUATTDRO 07:24 → FM/S 13:00 → FASUSAT 01-05 14:45
PROVIDERS: ATTEND Internal Medicine
PROC: 8E0Y0CZ Robotic Assisted Procedure of Lower Extremity, Open Approach (ICD-10-PCS; 2025-01-04)
PROC: 0SRC0JA Replacement of Right Knee Joint with Synthetic Substitute, Uncemented, Open Approach (ICD-10-PCS; principal; 2025-01-04 10:45)
DX: M17.11 Unilateral primary osteoarthritis, right knee (principal)
CPT/HCPCS: 20985; 27447; S2900; 36415; 73560-TC-RT-FY; 80048; 82962; 85027; 88305-TC; 88311-TC; 94760; 97010-GP; 97116-GP; 97162-GP; C1776; J0131; J0666